=== PATIENT | female | born 1945 | race Caucasian/White ===

== ENCOUNTER 2016-11-17 16:43 | Emergency (ER) | payer MEDICARE, OTHER ==
[2016-11-17 16:14] LABS: URINE BILIRUBIN NEGATIVE (NEG); URINE BLOOD MODERATE (NEG); URINE GLUCOSE (UA) NEGATIVE (NEG); URINE KETONE MODERATE (NEG); URINE LEUKOCYTE ESTERASE POSITIVE (NEG); URINE NITRITE NEGATIVE (NEG); URINE PROTEIN MODERATE (NEG)
[2016-11-17 16:14] LABS: BASO % 0.5 % (0-2); EOS % 2.2 % (0-7); EOSINOPHIL ABSOLUTE COUNT 0.2 tho/cmm (0.0-0.7); HCT-HEMATOCRIT 43.8 % (34.0-49.0); HGB-HEMOGLOBIN 14.5 gm/dl (12.0-15.5); IMMATURE GRANULOCYTES ABSOLUTE 0.02 tho/cmm (0-0.03); IMMATURE GRANULOCYTES PERCENT 0.2 % (0-0.3); LYMPH % 22.6 % (20-45); LYMPH ABSOLUTE COUNT 1.9 tho/cmm (0.8-4.5); MCH (MEAN CORPUSCULAR HGB) 29.5 pg (28.0-32.0); MCHC MEAN CORPUSCULAR HGB CONC 33.1 % (32.0-36.0); MCV (MEAN CELL VOLUME) 89.2 fl (82.0-96.0); MEAN PLATELET VOLUME 10.5 cmc (9.4-12.4); MONO % 8.2 % (0-12); MONOCYTE ABSOLUTE COUNT 0.7 tho/cmm (0.0-1.2); NEUTROPHIL ABSOLUTE COUNT 5.5 tho/cmm (1.6-8.0); NEUTROPHIL-AUTOMATED 5.5 tho/cmm (1.6-8.0); NEUTROPHILS % 66.3 % (40-80); PLATELET COUNT 294 tho/cmm (150-450); RED BLOOD COUNT 4.91 mil/cmm (4.00-5.20); RED CELL DISTRIBUTION WIDTH 13.2 % (12.4-16.4); WHITE BLOOD COUNT 8.3 tho/cmm (4.0-10.0)
[2016-11-17 16:22] LABS: URINE APPEARANCE SL CLOUDY; URINE COLOR BROWN
[2016-11-17 16:30] LABS: ALKALINE PHOSPHATASE 86 U/L (33-138); ALT/SGPT 50 U/L (12-78); ANION GAP 17 mmol/L (0-20); AST/SGOT 40 U/L (10-40); BILIRUBIN,TOTAL 0.4 mg/dl (0-1.5); BLOOD UREA NITROGEN 19 mg/dl (6-24); CALCIUM 9.5 mg/dl (8.5-10.5); CARBON DIOXIDE-VENOUS 24 mmol/L (22-32); CHLORIDE 105 mmol/l (96-110); CREATININE 0.85 mg/dl (0.50-1.10); GLUCOSE 139 mg/dL (70-110); SODIUM 141 mmol/L (135-145); eGFR VALUE FOR BLACK 82 mL/Min
[2016-11-17 16:30] LABS: URINE BACTERIA 1+; URINE RBC 0-1 /[HPF] (0-5)
[2016-11-17 16:31] LABS: POTASSIUM 4.5 mmol/L (3.7-5.1)
[~2016-11-17 16:43] MED LIST: ALEVE220 M4 PO; ANXIETY PILL PO; CALCIUM 600 +1 EAC1 PO; CALCIUM 600+D1 EAC2 PO; CATAFLAM50 MG PO; COUMADIN4 MG PO; CYCLOBENZAPRINE5 M1 PO; FISH OIL 1,2001 EAC5 PO; FOLIC ACID1 M1 PO; GLIPIZIDE ER5 MG PO; HYDROCODON-ACE1 EA15 PO; LOVENOX80 MG/0.8 SQ; MACROBID 100 M100 M1 PO; METFORMIN HCL500 M2 PO; METFORMIN HCL500 M4 PO; NORCO 5-325 TA1 EACH PO; PAXIL20 MG PO; POTASSIUM GLUCONATE PO; SENOKOT-S TABL1 EACH PO; SIMVASTATIN PO; ULTRAM50 MG PO; VITAMIN D32000 UNI3 PO; VITAMIN E1000 UNI2 PO; ZOCOR40 MG PO; ZOFRAN4 M2 PO; ZOFRAN4 MG PO
[2016-11-17] MEDS ORDERED: HYDROCODON-ACE1 EA16 PO (16:48)
[2016-11-17] MEDS ORDERED: ALEVE220 M3 PO (16:50)
[2016-11-17] MEDS ORDERED: NORCO 5-325 TA1 EACH PO (16:56)
[2016-11-17] MEDS ORDERED: CIPRO500 M2 PO (16:56)
[2016-11-17] MEDS ORDERED: ZOFRAN ODT4 MG PO (16:56)
== END 2016-11-17 17:17 ==
LOC: EDMED 16:43
PROVIDERS: Emergency Medicine
DX: N20.1 Calculus of ureter (principal); E11.9 Type 2 diabetes mellitus without complications
CPT/HCPCS: J1885; J7030